=== PATIENT | female | born 1935 | race Caucasian/White ===

== ENCOUNTER → 2017-07-21 | Outpatient (CLI) | payer MEDICARE ==
--- NOTE | 2017-07-27 10:18 | RADIOLOGY REPORT PS360 ---
DIG MAMM-SCREEN DESIRE W/CAD CAD Screening COMPARISON: Digital left mammogram 07/08/2016 and digital bilateral mammograms 12/27/2015 INDICATION: There is no personal or family history of breast cancer TECHNIQUE: Standard CC and MLO images were obtained. R2 CAD reviewed. FINDINGS: Moderate heterogenic fibroglandular densities are seen in the central portions of both breasts. There are stable mild nodularity left breast as described previously. There are scattered benign-appearing calcifications in each breast and there is minimal arterial calcification in each breast as well. There is no new or suspicious lesion and there are no suspicious microcalcifications. The nipples are somewhat inverted bilaterally but this has been noted previously. IMPRESSION: Stable exam no suspicious lesion seen recommend yearly follow-up BI-RADS CATEGORY: 2_Benign RECOMMENDED FOLLOWUP: 12M 12 MONTH FOLLOW-UP (A letter has been sent to the patient regarding results of the study.)
== END ==
LOC: RAD 07-16 16:00
DX: Z12.31 Encounter for screening mammogram for malignant neoplasm of breast (principal)
CPT/HCPCS: G0202